=== PATIENT | male | born 1945 | race Caucasian/White ===

== ENCOUNTER → 2017-09-20 | Outpatient (CLI) | payer MEDICARE ==
[~2017-09-20] MED LIST: METF500 PO
[2017-09-20 12:27] LABS: Protein, Urine Quantitative 16.8 mg/dL (0.0-11.9)
[2017-09-20 12:30] LABS: Microalbumin, Urine Quant. 27.1 mg/L (0.000-20.000)
== END | disposition home or self-care (01) ==
LOC: LAB 10:04
PROVIDERS: Internal Medicine Nephrology
DX: E10.65 Type 1 diabetes mellitus with hyperglycemia (principal)
CPT/HCPCS: 82043; 84156

== ENCOUNTER 2019-08-09 13:38 | Inpatient (IN) | payer MEDICARE ==
[~2019-08-09] VITALS: Ht 170.2 cm; Wt 100.1 kg
[2019-08-09 13:59] LABS: BASOPHILS ABSOLUTE AUTO 0.09 K/mm3 (0.00-0.23); BASOPHILS PERCENT AUTO 1 % (0-2); EOSINOPHILS ABSOLUTE AUTO 0.29 K/mm3 (0.00-0.68); EOSINOPHILS PERCENT AUTO 3 % (0-6); Hematocrit 25.3 % (37.0-53.0); Hemoglobin 8.1 g/dL (13.5-17.5); IMMATURE GRAN ABSOLUTE AUTO 0.07 K/mm3 (0.00-0.10); IMMATURE GRAN PERCENT AUTO 1 % (0-1); LYMPHOCYTES ABSOLUTE AUTO 1.19 K/mm3 (0.84-5.20); LYMPHOCYTES PERCENT AUTO 11 % (21-46); MONOCYTES ABSOLUTE AUTO 0.79 K/mm3 (0.16-1.47); MONOCYTES PERCENT AUTO 7 % (4-13); Mean Corpuscular HGB 29.9 pg (26.0-34.0); Mean Corpuscular Volume 93 fL (80-100); Mean Platelet Volume 10.3 fL (9.1-12.4); NEUTROPHILS ABSOLUTE AUTO 8.93 K/mm3 (1.96-9.15); NEUTROPHILS PERCENT AUTO 79 % (41-73); Platelet Count 448 K/mm3 (150-400); RDW Coefficient Variation 13.1 % (11.7-14.2); RDW Standard Deviation 43.9 fL (35.1-46.3); Red Blood Cell Count 2.71 M/mm3 (4.30-5.90); White Blood Cell Count 11.36 K/mm3 (4.00-11.30)
[2019-08-09] MEDS ORDERED: ATORVASTATIN CA20 MG PO (14:11)
[2019-08-09] MEDS ORDERED: LIRA0.6P SC (14:12)
[2019-08-09] MEDS ORDERED: TAMSULOSIN HCL0.4 M1 PO (14:12)
[2019-08-09] MEDS ORDERED: ASPI325EC PO (14:12)
[2019-08-09] MEDS ORDERED: METOPROLOL SUCC25 MG PO (14:12)
[2019-08-09 14:36] LABS: Albumin, Blood 3.6 g/dL (3.4-5.0); Albumin/Globulin Ratio 0.9 (0.8-1.8); Bilirubin, Total 0.2 mg/dL (0.1-1.0); Bun/Creatinine Ratio 22.6 (12.0-20.0); Calcium, Blood 8.5 mg/dL (8.5-10.1); Creatinine, Blood 4.55 mg/dL (0.60-1.20); Globulin, Blood 4.1 g/dL (2.2-4.0); Total Protein, Blood 7.7 g/dL (6.4-8.2)
[2019-08-09 14:41] LABS: Troponin I 1.15 ng/mL (0.000-0.040)
[2019-08-09 15:19] LABS: International Normalized Ratio 0.99; Prothrombin Time Results 10.6 Sec (9.7-11.5)
[2019-08-09 15:33] LABS: Source, Urine Clean Catch
[2019-08-09 15:38] LABS: Bilirubin, Urine Neg (Neg); Blood, Urine Neg (Neg); Glucose Qualitative, Urine Neg (Neg); Ketones, Urine Neg (Neg); Leukocyte Esterase, Urine 1+ (Neg); Nitrite, Urine Neg (Neg); Protein, Urine Neg (Neg); Urobilinogen, Urine NORM (Normal)
[2019-08-09 15:49] LABS: Appearance, Urine Clear (Clear); Color, Urine Pale Yellow (P-Yellow)
[2019-08-09 15:50] LABS: Bacteria Few /hpf; Squamous Epithelial Cells Not Seen /hpf (Few)
[2019-08-10 04:14] LABS: BASOPHILS ABSOLUTE AUTO 0.06 K/mm3 (0.00-0.23); BASOPHILS PERCENT AUTO 0 % (0-2); EOSINOPHILS ABSOLUTE AUTO 0.02 K/mm3 (0.00-0.68); EOSINOPHILS PERCENT AUTO 0 % (0-6); Hemoglobin 8.8 g/dL (13.5-17.5); IMMATURE GRAN PERCENT AUTO 1 % (0-1); LYMPHOCYTES ABSOLUTE AUTO 0.74 K/mm3 (0.84-5.20); LYMPHOCYTES PERCENT AUTO 5 % (21-46); MONOCYTES ABSOLUTE AUTO 1.04 K/mm3 (0.16-1.47); MONOCYTES PERCENT AUTO 6 % (4-13); Mean Corpuscular HGB 29.9 pg (26.0-34.0); Mean Corpuscular HGB Conc 32.6 g/dL (31.5-36.5); Mean Corpuscular Volume 92 fL (80-100); Mean Platelet Volume 10.7 fL (9.1-12.4); NEUTROPHILS ABSOLUTE AUTO 14.36 K/mm3 (1.96-9.15); NEUTROPHILS PERCENT AUTO 88 % (41-73); Platelet Count 357 K/mm3 (150-400); RDW Standard Deviation 42.5 fL (35.1-46.3); Red Blood Cell Count 2.94 M/mm3 (4.30-5.90); White Blood Cell Count 16.32 K/mm3 (4.00-11.30)
[2019-08-10 04:39] LABS: Anion Gap 9 mmol/L (6-16); Blood Urea Nitrogen 95 mg/dL (8-24); Bun/Creatinine Ratio 22.7 (12.0-20.0); CHOL/HDL RATIO 2.9; CO2, Blood 19 mmol/L (21-32); Calcium, Blood 8.2 mg/dL (8.5-10.1); Chloride, Blood 115 mmol/L (98-108); Cholesterol 100 mg/dL (50-200); Creatinine, Blood 4.19 mg/dL (0.60-1.20); Glomerular Filtration Rate 15 (60-); Glucose, Blood 156 mg/dL (70-99); HDL Cholesterol 35 mg/dL (>39); Low Density Lipoprotein Chol 36 mg/dL (0-110); Magnesium, Blood 2.2 mg/dL (1.6-2.4); Phosphorus, Blood 7.3 mg/dL (2.5-4.9); Potassium, Blood 4.6 mmol/L (3.5-5.5); Sodium, Blood 143 mmol/L (136-145); Triglycerides 144 mg/dL (30-160); Very Low Density Lipoprot Chol 28 mg/dL (6-32)
[2019-08-10 14:19] LABS: Hematocrit 26.4 % (37.0-53.0); Hemoglobin 8.8 g/dL (13.5-17.5)
[2019-08-10 16:39] LABS: Source, Urine Catheter
[2019-08-10 17:03] LABS: Bilirubin, Urine Neg (Neg); Blood, Urine 5+ (Neg); Glucose Qualitative, Urine Neg (Neg); Ketones, Urine Neg (Neg); Leukocyte Esterase, Urine 3+ (Neg); Nitrite, Urine Neg (Neg); Protein, Urine 4+ (Neg); Urobilinogen, Urine NORM (Normal); pH, Urine 6.5 (5.0-8.0)
[2019-08-10 17:08] LABS: Appearance, Urine Bloody (Clear); Color, Urine Red (P-Yellow)
[2019-08-10 17:10] LABS: Bacteria Rare /hpf; Red Blood Cells, Urine TNTC /hpf (0-2); Squamous Epithelial Cells Not Seen /hpf (Few); White Blood Cells, Urine TNTC /hpf (0-5)
[2019-08-10 20:42] LABS: Hematocrit 25.4 % (37.0-53.0); Hemoglobin 8.5 g/dL (13.5-17.5)
[2019-08-11 04:16] LABS: BASOPHILS ABSOLUTE AUTO 0.06 K/mm3 (0.00-0.23); BASOPHILS PERCENT AUTO 1 % (0-2); EOSINOPHILS ABSOLUTE AUTO 0.45 K/mm3 (0.00-0.68); EOSINOPHILS PERCENT AUTO 4 % (0-6); Hematocrit 25.1 % (37.0-53.0); Hemoglobin 8.5 g/dL (13.5-17.5); IMMATURE GRAN ABSOLUTE AUTO 0.07 K/mm3 (0.00-0.10); IMMATURE GRAN PERCENT AUTO 1 % (0-1); LYMPHOCYTES ABSOLUTE AUTO 1.38 K/mm3 (0.84-5.20); LYMPHOCYTES PERCENT AUTO 11 % (21-46); MONOCYTES ABSOLUTE AUTO 1.34 K/mm3 (0.16-1.47); MONOCYTES PERCENT AUTO 10 % (4-13); Mean Corpuscular HGB 30.7 pg (26.0-34.0); Mean Corpuscular HGB Conc 33.9 g/dL (31.5-36.5); Mean Corpuscular Volume 91 fL (80-100); Mean Platelet Volume 10.1 fL (9.1-12.4); NEUTROPHILS ABSOLUTE AUTO 9.71 K/mm3 (1.96-9.15); NEUTROPHILS PERCENT AUTO 75 % (41-73); Platelet Count 306 K/mm3 (150-400); RDW Coefficient Variation 13.7 % (11.7-14.2); RDW Standard Deviation 44.9 fL (35.1-46.3); Red Blood Cell Count 2.77 M/mm3 (4.30-5.90); White Blood Cell Count 13.01 K/mm3 (4.00-11.30)
[2019-08-11 04:35] LABS: Albumin, Blood 2.7 g/dL (3.4-5.0); Anion Gap 9 mmol/L (6-16); Blood Urea Nitrogen 84 mg/dL (8-24); Bun/Creatinine Ratio 21.9 (12.0-20.0); CO2, Blood 21 mmol/L (21-32); Calcium, Blood 7.9 mg/dL (8.5-10.1); Chloride, Blood 111 mmol/L (98-108); Creatinine, Blood 3.83 mg/dL (0.60-1.20); Glomerular Filtration Rate 16 (60-); Glucose, Blood 154 mg/dL (70-99); Magnesium, Blood 1.8 mg/dL (1.6-2.4); Phosphorus, Blood 4.4 mg/dL (2.5-4.9); Sodium, Blood 141 mmol/L (136-145)
[2019-08-11 16:28] LABS: Hematocrit 26.8 % (37.0-53.0)
[2019-08-12 03:27] LABS: BASOPHILS ABSOLUTE AUTO 0.04 K/mm3 (0.00-0.23); BASOPHILS PERCENT AUTO 0 % (0-2); EOSINOPHILS ABSOLUTE AUTO 0.36 K/mm3 (0.00-0.68); EOSINOPHILS PERCENT AUTO 2 % (0-6); Hematocrit 27.1 % (37.0-53.0); IMMATURE GRAN ABSOLUTE AUTO 0.09 K/mm3 (0.00-0.10); IMMATURE GRAN PERCENT AUTO 1 % (0-1); LYMPHOCYTES ABSOLUTE AUTO 1.22 K/mm3 (0.84-5.20); LYMPHOCYTES PERCENT AUTO 8 % (21-46); MONOCYTES ABSOLUTE AUTO 1.46 K/mm3 (0.16-1.47); MONOCYTES PERCENT AUTO 10 % (4-13); Mean Corpuscular HGB 30.3 pg (26.0-34.0); Mean Corpuscular HGB Conc 33.2 g/dL (31.5-36.5); Mean Corpuscular Volume 91 fL (80-100); Mean Platelet Volume 10.1 fL (9.1-12.4); NEUTROPHILS ABSOLUTE AUTO 11.65 K/mm3 (1.96-9.15); NEUTROPHILS PERCENT AUTO 79 % (41-73); Platelet Count 299 K/mm3 (150-400); RDW Coefficient Variation 14.2 % (11.7-14.2); RDW Standard Deviation 46.4 fL (35.1-46.3); Red Blood Cell Count 2.97 M/mm3 (4.30-5.90); White Blood Cell Count 14.82 K/mm3 (4.00-11.30)
[2019-08-12 03:41] LABS: Albumin, Blood 2.6 g/dL (3.4-5.0); Anion Gap 7 mmol/L (6-16); Blood Urea Nitrogen 69 mg/dL (8-24); Bun/Creatinine Ratio 19.3 (12.0-20.0); CO2, Blood 22 mmol/L (21-32); Calcium, Blood 7.6 mg/dL (8.5-10.1); Chloride, Blood 113 mmol/L (98-108); Creatinine, Blood 3.57 mg/dL (0.60-1.20); Glomerular Filtration Rate 18 (60-); Glucose, Blood 147 mg/dL (70-99); Magnesium, Blood 1.7 mg/dL (1.6-2.4); Potassium, Blood 3.7 mmol/L (3.5-5.5); Sodium, Blood 142 mmol/L (136-145)
[2019-08-12 16:10] LABS: Hematocrit 27.5 % (37.0-53.0)
[2019-08-13 03:36] LABS: BASOPHILS ABSOLUTE AUTO 0.06 K/mm3 (0.00-0.23); BASOPHILS PERCENT AUTO 0 % (0-2); EOSINOPHILS ABSOLUTE AUTO 0.58 K/mm3 (0.00-0.68); EOSINOPHILS PERCENT AUTO 4 % (0-6); Hematocrit 25.4 % (37.0-53.0); Hemoglobin 8.6 g/dL (13.5-17.5); IMMATURE GRAN ABSOLUTE AUTO 0.12 K/mm3 (0.00-0.10); IMMATURE GRAN PERCENT AUTO 1 % (0-1); LYMPHOCYTES ABSOLUTE AUTO 1.52 K/mm3 (0.84-5.20); LYMPHOCYTES PERCENT AUTO 11 % (21-46); MONOCYTES ABSOLUTE AUTO 1.34 K/mm3 (0.16-1.47); MONOCYTES PERCENT AUTO 9 % (4-13); Mean Corpuscular HGB 31.2 pg (26.0-34.0); Mean Corpuscular HGB Conc 33.9 g/dL (31.5-36.5); Mean Corpuscular Volume 92 fL (80-100); Mean Platelet Volume 10.2 fL (9.1-12.4); NEUTROPHILS ABSOLUTE AUTO 10.62 K/mm3 (1.96-9.15); NEUTROPHILS PERCENT AUTO 75 % (41-73); Platelet Count 315 K/mm3 (150-400); RDW Coefficient Variation 14.1 % (11.7-14.2); RDW Standard Deviation 46.5 fL (35.1-46.3); Red Blood Cell Count 2.76 M/mm3 (4.30-5.90); White Blood Cell Count 14.24 K/mm3 (4.00-11.30)
[2019-08-13 03:51] LABS: Magnesium, Blood 1.6 mg/dL (1.6-2.4)
[2019-08-13 03:52] LABS: Albumin, Blood 2.4 g/dL (3.4-5.0); Anion Gap 7 mmol/L (6-16); Blood Urea Nitrogen 58 mg/dL (8-24); Bun/Creatinine Ratio 17.2 (12.0-20.0); CO2, Blood 23 mmol/L (21-32); Calcium, Blood 7.7 mg/dL (8.5-10.1); Chloride, Blood 111 mmol/L (98-108); Creatinine, Blood 3.38 mg/dL (0.60-1.20); Glomerular Filtration Rate 19 (60-); Glucose, Blood 154 mg/dL (70-99); Phosphorus, Blood 3.8 mg/dL (2.5-4.9); Potassium, Blood 3.8 mmol/L (3.5-5.5); Sodium, Blood 141 mmol/L (136-145)
[2019-08-14 05:04] LABS: Hematocrit 23.9 % (37.0-53.0); Hemoglobin 7.7 g/dL (13.5-17.5)
[2019-08-14 05:26] LABS: Albumin, Blood 2.5 g/dL (3.4-5.0); Anion Gap 8 mmol/L (6-16); Blood Urea Nitrogen 57 mg/dL (8-24); Bun/Creatinine Ratio 16.5 (12.0-20.0); CO2, Blood 24 mmol/L (21-32); Calcium, Blood 7.6 mg/dL (8.5-10.1); Chloride, Blood 109 mmol/L (98-108); Creatinine, Blood 3.46 mg/dL (0.60-1.20); Glomerular Filtration Rate 19 (60-); Glucose, Blood 150 mg/dL (70-99); Magnesium, Blood 1.4 mg/dL (1.6-2.4); Phosphorus, Blood 3.5 mg/dL (2.5-4.9); Potassium, Blood 3.7 mmol/L (3.5-5.5); Sodium, Blood 141 mmol/L (136-145)
[2019-08-15 04:35] LABS: Hemoglobin 8.9 g/dL (13.5-17.5)
[2019-08-15 04:55] LABS: Albumin, Blood 2.6 g/dL (3.4-5.0); Anion Gap 7 mmol/L (6-16); Blood Urea Nitrogen 54 mg/dL (8-24); Bun/Creatinine Ratio 17.5 (12.0-20.0); CO2, Blood 27 mmol/L (21-32); Calcium, Blood 7.9 mg/dL (8.5-10.1); Chloride, Blood 105 mmol/L (98-108); Creatinine, Blood 3.09 mg/dL (0.60-1.20); Glomerular Filtration Rate 21 (60-); Glucose, Blood 153 mg/dL (70-99); Magnesium, Blood 1.7 mg/dL (1.6-2.4); Phosphorus, Blood 3.7 mg/dL (2.5-4.9); Potassium, Blood 3.5 mmol/L (3.5-5.5); Sodium, Blood 139 mmol/L (136-145)
[2019-08-16 04:16] LABS: Hematocrit 28.4 % (37.0-53.0); Hemoglobin 9.2 g/dL (13.5-17.5)
[2019-08-16 04:31] LABS: Albumin, Blood 2.6 g/dL (3.4-5.0); Anion Gap 8 mmol/L (6-16); Blood Urea Nitrogen 53 mg/dL (8-24); Bun/Creatinine Ratio 17.4 (12.0-20.0); CO2, Blood 27 mmol/L (21-32); Calcium, Blood 7.9 mg/dL (8.5-10.1); Chloride, Blood 105 mmol/L (98-108); Creatinine, Blood 3.05 mg/dL (0.60-1.20); Glomerular Filtration Rate 21 (60-); Glucose, Blood 154 mg/dL (70-99); Magnesium, Blood 1.6 mg/dL (1.6-2.4); Phosphorus, Blood 3.7 mg/dL (2.5-4.9); Potassium, Blood 3.5 mmol/L (3.5-5.5); Sodium, Blood 140 mmol/L (136-145)
[2019-08-16] MEDS ORDERED: ATOR40TA PO (14:38)
[2019-08-16] MEDS ORDERED: ISOSORBIDE MONO60 MG PO (14:41)
== END 2019-08-16 16:16 | disposition home or self-care (01) | DRG 380 ==
LOC: ER 13:38 → PCU 13:39 → ICUW 18:39 → PCU 18:52 → ICUW 19:28 → MEDS 08-14 02:35
PROVIDERS: Emergency Medicine; Internal Medicine Gastroenterology; Internal Medicine Nephrology; Internal Medicine Pulmonary Disease; Physician Assistant; ADMIT Internal Medicine
PROC: 30233N1 Transfusion of Nonautologous Red Blood Cells into Peripheral Vein, Percutaneous Approach (ICD-10-PCS; 2019-08-09)
PROC: 0DB68ZZ Excision of Stomach, Via Natural or Artificial Opening Endoscopic (ICD-10-PCS; principal; 2019-08-10 12:00)
PROC: 0DD68ZX Extraction of Stomach, Via Natural or Artificial Opening Endoscopic, Diagnostic (ICD-10-PCS; 2019-08-10 12:00)
DX: K22.11 Ulcer of esophagus with bleeding (principal); I21.A1 Myocardial infarction type 2; N18.4 Chronic kidney disease, stage 4 (severe); D62 Acute posthemorrhagic anemia; N39.0 Urinary tract infection, site not specified; I25.2 Old myocardial infarction; E00.9 Congenital iodine-deficiency syndrome, unspecified; Z95.5 Presence of coronary angioplasty implant and graft; I12.9 Hypertensive chronic kidney disease with stage 1 through stage 4 chronic kidney disease, or unspecified chronic kidney disease; E78.5 Hyperlipidemia, unspecified; I25.10 Atherosclerotic heart disease of native coronary artery without angina pectoris; Z79.84 Long term (current) use of oral hypoglycemic drugs; Z79.82 Long term (current) use of aspirin; Z87.891 Personal history of nicotine dependence; E66.3 Overweight; Z68.31 Body mass index [BMI] 31.0-31.9, adult; E83.39 Other disorders of phosphorus metabolism; E88.09 Other disorders of plasma-protein metabolism, not elsewhere classified; E11.22 Type 2 diabetes mellitus with diabetic chronic kidney disease; I35.0 Nonrheumatic aortic (valve) stenosis; E86.1 Hypovolemia; N13.9 Obstructive and reflux uropathy, unspecified; T39.015A Adverse effect of aspirin, initial encounter; Y92.9 Unspecified place or not applicable; N40.1 Benign prostatic hyperplasia with lower urinary tract symptoms; T83.83XD Hemorrhage due to genitourinary prosthetic devices, implants and grafts, subsequent encounter
CPT/HCPCS: 36415; 36430; 51700; 51702; 51798; 71046; 74176; 76770; 80053; 80061; 80069; 81001; 82272; 82947; 83735; 83880; 84484; 85014; 85018; 85025; 85610; 85730; 86850; 86900; 86901; 86923; 87086; 88305; 88342; 93005; 93010; 93306; 96365; 96375; 97116; 97162; 97165; 97530; 99285-25; A9270-GY; C9113; G0103; J0171; J0696; J0881; J1940; J2270; J2370; J2405; J2704; J3475; J7030; J7040; J7120; P9016

== ENCOUNTER 2019-09-23 08:50 | Inpatient (IN) | payer MEDICARE ==
[~2019-09-23] VITALS: Ht 170.2 cm; Wt 88.4 kg
[~2019-09-23 08:50] MED LIST changes: +ASPI325EC PO; +ATOR40TA PO; +ATORVASTATIN CA20 MG PO; +ISOSORBIDE MONO60 MG PO; +LIRA0.6P SC; +TAMSULOSIN HCL0.4 M1 PO
[2019-09-23 09:34] LABS: BASOPHILS ABSOLUTE AUTO 0.15 K/mm3 (0.00-0.23); BASOPHILS PERCENT AUTO 1 % (0-2); EOSINOPHILS ABSOLUTE AUTO 0.28 K/mm3 (0.00-0.68); EOSINOPHILS PERCENT AUTO 2 % (0-6); Hematocrit 37.2 % (37.0-53.0); Hemoglobin 11.7 g/dL (13.5-17.5); IMMATURE GRAN ABSOLUTE AUTO 0.21 K/mm3 (0.00-0.10); IMMATURE GRAN PERCENT AUTO 1 % (0-1); LYMPHOCYTES ABSOLUTE AUTO 0.83 K/mm3 (0.84-5.20); LYMPHOCYTES PERCENT AUTO 5 % (21-46); MONOCYTES ABSOLUTE AUTO 1.31 K/mm3 (0.16-1.47); MONOCYTES PERCENT AUTO 9 % (4-13); Mean Corpuscular HGB 26.1 pg (26.0-34.0); Mean Corpuscular HGB Conc 31.5 g/dL (31.5-36.5); Mean Platelet Volume 9.7 fL (9.1-12.4); NEUTROPHILS ABSOLUTE AUTO 12.68 K/mm3 (1.96-9.15); NEUTROPHILS PERCENT AUTO 82 % (41-73); Platelet Count 778 K/mm3 (150-400); RDW Coefficient Variation 15.2 % (11.7-14.2); RDW Standard Deviation 45.9 fL (35.1-46.3); Red Blood Cell Count 4.48 M/mm3 (4.30-5.90); White Blood Cell Count 15.46 K/mm3 (4.00-11.30)
[2019-09-23 09:36] LABS: Mean Corpuscular Volume 83 fL (80-100)
[2019-09-23 09:41] LABS: Troponin I <0.015 ng/mL (0.000-0.040)
[2019-09-23 09:53] LABS: Alanine Aminotransfer (ALT/SGP 42 U/L (12-78); Albumin, Blood 2.2 g/dL (3.4-5.0); Albumin/Globulin Ratio 0.3 (0.8-1.8); Alk Phos 121 U/L (50-136); Anion Gap 12 mmol/L (6-16); Aspartate Aminotrans (AST/SGOT 21 U/L (12-37); Bilirubin, Total 0.4 mg/dL (0.1-1.0); Blood Urea Nitrogen 97 mg/dL (8-24); Bun/Creatinine Ratio 25.1 (12.0-20.0); CO2, Blood 16 mmol/L (21-32); Calcium, Blood 9.3 mg/dL (8.5-10.1); Chloride, Blood 102 mmol/L (98-108); Creatinine, Blood 3.86 mg/dL (0.60-1.20); Globulin, Blood 6.4 g/dL (2.2-4.0); Glomerular Filtration Rate 16 (60-); Glucose, Blood 288 mg/dL (70-99); Sodium, Blood 130 mmol/L (136-145); Total Protein, Blood 8.6 g/dL (6.4-8.2)
[2019-09-23 10:26] LABS: Source, Urine Clean Catch
[2019-09-23 10:31] LABS: Bilirubin, Urine Neg (Neg); Blood, Urine 4+ (Neg); Glucose Qualitative, Urine 1+ (Neg); Ketones, Urine Neg (Neg); Leukocyte Esterase, Urine 3+ (Neg); Nitrite, Urine Neg (Neg); Protein, Urine 3+ (Neg); Urobilinogen, Urine NORM (Normal)
[2019-09-23 10:52] LABS: Appearance, Urine Cloudy (Clear); Bacteria Many /hpf; Color, Urine Yellow (P-Yellow); Red Blood Cells, Urine TNTC /hpf (0-2); Squamous Epithelial Cells Not Seen /hpf (Few); White Blood Cells, Urine TNTC /hpf (0-5)
[2019-09-23] MEDS ORDERED: PANTOPRAZOLE SO40 M2 PO (12:23)
--- NOTE | 2019-09-23 14:50 | NUR ---
ER ADMIT- PT ARRIVED TO ROOM 301 VIA GURNEY FROM ED AT 1215, PT A SBA INTO BATHROOM, PT WITH UNSTEADY GAIT. LS CLEAR, ON RA, PT REPORTS OCCASIONAL PRODUCTIVE COUGH. TELE SR AT 95. WAS ABLE TO GET A POST VOID BLADDER SCAN OF 867,PT REFUSED A CATHETER REPORTS HE WAS DISCHARGED HOME WITH ONE FOR 15 DAYS AND WOULD NEVER DO IT AGAIN. PT REPORTS HE IS SEES A UROLOGIST THAT COMES DOWN FROM [place] THAT HAS MENTIONED TO PT BEFORE ABOUT A STRAIGHT CATH BUT PT HAS NOT EVER STRAIGHT CATH'D HIMSELF. SPOKE WITH DR CALLOWAY WHO GAVE ORDERS FOR BLADDER SCAN EVERY 4-6 HOURS AND STRAIGHT CATH FOR GREATER THAT 300ML. DR TY CONSULTED. PT REPORTS HE IS UNSURE WHAT HE TAKES AT HOME, STATES HE WAS DISCHARGED FROM [place] IN [place] AND WAS GIVEN A 30 DAY FILL BUT NO REFILS SO STOPPED TAKING HIS MEDS AFTER HE RAN OUT AND HAS NOT SEEN HIS PRIMARY TO FILL. [facility] CALLED AND REPORTED PT HAD A OUTPATIENT STRESS TEST ORDERED FOR TODAY AND TOMORROW, CALLED AND SPOKE WITH DR CALLOWAY WHO REPORTS PT IS TO UNSTABLE AT THIS TIME TO COMPLETE WHILE HERE AND IT WILL NEED TO BE RESCHEDULED, [facility] NOTIFIED. ORTHOSTATICS COMPLETED WHEN PT ARRIVED, LYING 150/89 HR 95, SITTING 137/94 HR 101 AND STANDING 118/82 HR 107, PT DID REPORT FEELING LIGHTHEADED. DR CALLOWAY NOTIFIED OF POSITIVE ORTHOSTATICS, NO NEW ORDERS RECEIVED. PT ORIENTED TO ROOM ADN CALL SYSTEM, CALL LIGHT IN REACH.
[2019-09-23] MEDS ORDERED: METOPROLOL SUCC25 MG PO (14:51)
--- NOTE | 2019-09-23 17:31 | NUR ---
ER ADMIT- PT A/O BUT FORGETFUL AT TIMES. 1 ASSIST TO BATHROOM, UNSTEADY GAIT. PT DENIES ANY COMPLAINTS. LS CLEAR, ON RA. TELE SR AT 95. STRAIGHT CATH X1 WITH [address] TY BLADDER SCAN EVERY 6 HOURS WHILE AWAKE, ORDERS FOR STRAIGHT CATH FOR GREATER THAN 300ML. DAUGHTER DUKE UPDATED. NO OTHER ACUTE CHANGES SINCE ADMIT.
--- NOTE | 2019-09-24 04:45 | NUR ---
SHIFT SUMMARY PT A/O. PLEASANT AND COOPERATIVE. SLEPT THROUGH MUCH OF THE NIGHT. BLADDER SCAN DONE X 1 THIS EVENING WITH READING >667 ML. STRAIGHT CATH'D FOR 650 ML OUT. URINE VERY CLOUDY, ALMOST MILKY APPEARING. A SMALL AMOUNT OF BLOOD OUT AT FIRST WITH CATHETER INSERTION. STRAIGHT CATH VERY PAINFUL FOR PATIENT. PT DECLINED TO HAVE BLADDER SCAN DONE THIS AM, STATING THAT HE WOULD PREFER TO DO IT DURING THE DAY TIME. ORDER READS BLADDER SCAN Q 6 HOURS WHILE AWAKE. PT WOKEN FOR LABS AND VITAL SIGNS THIS AM BUT DID NOT WANT TO DO IT AT THAT TIME, REQUESTING TO WAIT UNTIL LATER IN THE DAY WHEN HE WAS MORE AWAKE. PT DENIED ANY PAIN THIS EVENING. PT DRANK A SMALL AMOUNT OF WATER. TOOK IN NOTHING ELSE ORALLY TONIGHT. SODIUM BICARB INFUSING AT 100 ML/HR. TELEMETRY SINUS TACH 101. WILL CONTINUE TO MONITOR AND REPORT TO DAY RN.
[2019-09-24 05:09] LABS: Hematocrit 31.3 % (37.0-53.0); Hemoglobin 9.9 g/dL (13.5-17.5)
[2019-09-24 05:51] LABS: Albumin, Blood 1.8 g/dL (3.4-5.0); Anion Gap 12 mmol/L (6-16); Blood Urea Nitrogen 92 mg/dL (8-24); Bun/Creatinine Ratio 25.4 (12.0-20.0); CO2, Blood 21 mmol/L (21-32); Calcium, Blood 8.3 mg/dL (8.5-10.1); Chloride, Blood 102 mmol/L (98-108); Creatinine, Blood 3.62 mg/dL (0.60-1.20); Glomerular Filtration Rate 18 (60-); Glucose, Blood 213 mg/dL (70-99); Magnesium, Blood 1.7 mg/dL (1.6-2.4); Phosphorus, Blood 4.1 mg/dL (2.5-4.9); Potassium, Blood 4.1 mmol/L (3.5-5.5); Sodium, Blood 135 mmol/L (136-145)
--- NOTE | 2019-09-24 08:15 | NUR ---
PT PLEASANT COOP A/O. DENIES PAIN. H/R REG, NO MURMER NOTED. PER TELE S TACH AT 100. LUNGS CLEAR, RESP EASY, UNLABORED. ON R/A. BT X4 LAST BM 2 DAYS. PT STATES FEELS MAY GO TODAY. IS NOT VOIDING. WILL STRAIGHT CATH BASED UPON FLUID >300 ORDERS. NO OTHER CONCERNS AT THIS TIME. BED IN LOW POSITION, CALL LITE IN REACH, CALLS APPROP
--- NOTE | 2019-09-24 09:54 | NUR ---
PT /OT REPORTED PT BP DROPPED TO MID 90'S PUT BACK TO BED. PT FELT DIZZY. PT IS IN BED. NEW BP 107/[address] TY. ORDERS 500 BOLUS. CONTINUE OTHER MEDS. HOLD BP MEDS IF <130 SBP.
--- NOTE | 2019-09-24 11:06 | NUR ---
BLADDER SCAN 969, STRAIGHT CATH, 1150 OUT.
--- NOTE | 2019-09-24 16:32 | NUR ---
DR TY CALLED [facility] CATH
--- NOTE | 2019-09-24 17:25 | NUR ---
PT PLEASANT TODAY. PT SPOKE TO OUTSIDE UROLOGY, UROLOGY CALLED AND STATES DR TY ASKED THEM TO TRY GET PT TO AGREE TO RIVERA CATH., AND STOP STRAIGHT CATH. ASKED PT, HE AGREED. CALLED DR TY, ORDERS GIVEN. RIVERA CATH PLACED. NO BLOOD, PT TOLERATED ACCEPTABLE. STERILE TECHNIQUE MAINTAINED. CLOUDY FLUID DRAINING. PT DID HAVE B/M TODAY. NO NEW ISSUES TODAY. BED IN LOW POSITION, CALL LITE IN REACH, CALLS APPROP
--- NOTE | 2019-09-24 19:30 | NUR ---
ASSUMED CARE RECEIVED REPORT FROM [facility]. ASSUMED CARE OF PT. RESTING COMFORTABLY AT THIS TIME, NO C/O CATHETER DISCOMFORT AT THIS TIME. DENIES NEEDS. CALL LIGHT, POSSESSIONS IN REACH, WILL CONTINUE TO MONITOR.
[2019-09-25 04:33] LABS: BASOPHILS ABSOLUTE AUTO 0.07 K/mm3 (0.00-0.23); BASOPHILS PERCENT AUTO 1 % (0-2); EOSINOPHILS ABSOLUTE AUTO 0.33 K/mm3 (0.00-0.68); EOSINOPHILS PERCENT AUTO 3 % (0-6); Hematocrit 31.8 % (37.0-53.0); Hemoglobin 9.9 g/dL (13.5-17.5); IMMATURE GRAN ABSOLUTE AUTO 0.15 K/mm3 (0.00-0.10); IMMATURE GRAN PERCENT AUTO 1 % (0-1); LYMPHOCYTES ABSOLUTE AUTO 1.01 K/mm3 (0.84-5.20); LYMPHOCYTES PERCENT AUTO 8 % (21-46); MONOCYTES ABSOLUTE AUTO 1.25 K/mm3 (0.16-1.47); MONOCYTES PERCENT AUTO 10 % (4-13); Mean Corpuscular HGB 26.1 pg (26.0-34.0); Mean Corpuscular HGB Conc 31.1 g/dL (31.5-36.5); Mean Corpuscular Volume 84 fL (80-100); Mean Platelet Volume 9.3 fL (9.1-12.4); NEUTROPHILS ABSOLUTE AUTO 9.73 K/mm3 (1.96-9.15); NEUTROPHILS PERCENT AUTO 78 % (41-73); Platelet Count 602 K/mm3 (150-400); RDW Coefficient Variation 15.4 % (11.7-14.2); RDW Standard Deviation 46.6 fL (35.1-46.3); White Blood Cell Count 12.54 K/mm3 (4.00-11.30)
[2019-09-25 04:56] LABS: Albumin, Blood 1.6 g/dL (3.4-5.0); Anion Gap 11 mmol/L (6-16); Blood Urea Nitrogen 77 mg/dL (8-24); Bun/Creatinine Ratio 23.1 (12.0-20.0); CO2, Blood 22 mmol/L (21-32); Chloride, Blood 102 mmol/L (98-108); Creatinine, Blood 3.33 mg/dL (0.60-1.20); Glomerular Filtration Rate 19 (60-); Glucose, Blood 233 mg/dL (70-99); Magnesium, Blood 1.6 mg/dL (1.6-2.4); Phosphorus, Blood 3.2 mg/dL (2.5-4.9); Potassium, Blood 3.8 mmol/L (3.5-5.5); Sodium, Blood 135 mmol/L (136-145)
--- NOTE | 2019-09-25 05:02 | NUR ---
SHIFT SUMMARY PT ASLEEP AT THIS TIME, NO S/S ACUTE DISTRESS NOTED. WAS MONITORED EVERY 1-2 HOURS WITH NEEDS MET, DENIES NEEDS AT THIS TIME. TOLERATED CATHETER WELL T/O NIGHT, NO C/O DISCOMFORT, U/O CONTINUES TO BE MILKY WHITE COLORED, NO C/O PAIN. NO ACUTE EVENTS NOTED T/O SHIFT, VS STABLE. CALL LIGHT, POSSESSIONS IN REACH, WILL CONTINUE TO MONITOR UNTIL DAY RN ASSUMES CARE.
--- NOTE | 2019-09-25 06:18 | NUR ---
SPOKE TO DR. BUTLER REGARDING PT'S ONGOING COUGH. ORDERS RECEIVED.
[2019-09-25] MEDS ORDERED: CEFU500T30 PO (10:22)
[2019-09-25] MEDS ORDERED: CLOP75 PO (10:22)
[2019-09-25] MEDS ORDERED: NITR.4SL SL (10:23)
[2019-09-25] MEDS ORDERED: Isosorbide Mono30 MG PO (10:23)
[2019-09-25] MEDS ORDERED: METO25ER PO (10:23)
--- NOTE | 2019-09-25 14:21 | NUR ---
DISCHARGE SUMMARY PT A&Ox3; CALM AND COOPERATIVE WITH CARE. PT RESTING IN BED DURING SHIFT, UP SBA WITH WALKER. PT WALKED 300+ FEET THIS AM, DENIES DZZINESS AND WEAKNESS. PT DENIES PAIN, CHEST PAIN/PRESSURE, SOB AND NAUSEA T/O SHIFT. OTHROSTATIC VITALS TAKEN THEN AM, NOTIFIED DR CALLOWAY. VSS. HELD IMDUR AND TOPROL XL DUE TO VS PARAMETERS. PT HAS RIVERA IN PLACE; PT BEING DISCHARGE WITH RIVERA CATHETER; BAG CHANGES TO LEG BAG AND SECURED TO PT LEG; PT EDUCATED ON RIVERA CATHETER CARE, PT STATES HE HAS HAD A FOELY CATHETER PREVIOUS AND KNOWS HOW TO TAKE CARE OF IT. PT DAUGHTER DUKE CALLED REGARDING HOME HEALTH, PT REFUSING STATING THAT HIS FAMILY WILL HELP TAKE CARE OF HIM; NOTIFIED PROVIDER REGARDING FAMILY DESIRE TO HAVE HOME HEALTH AND PT REFUSAL. PT EDUCATED ON DISCHARGE INSTRUCTIONS, FOLLOW APPOINTMENTS, AND MEDCIATIONS. PRESCRIPTIONS SENT TO [facility]. CLARIFIED WITH DR CALLOWAY REGARDING PARAMETERES AT HOME; NEW ORDERS TO CONTINUE BP PARAMETERES AT HOME. PT LEFT ROOM VIA WHEELCHAIR AT 1310. PT STABLE UPON DISCHARGE.
== END 2019-09-25 13:15 | disposition home or self-care (01) | DRG 641 ==
LOC: ER 08:50 → MEDS 11:18 → ENPENDDIS 09-25 10:00 → MEDS 09-25 13:15
PROVIDERS: Emergency Medicine; Internal Medicine Nephrology; ADMIT Internal Medicine Gastroenterology
DX: E87.5 Hyperkalemia (principal); N17.9 Acute kidney failure, unspecified; E87.1 Hypo-osmolality and hyponatremia; N18.9 Chronic kidney disease, unspecified; D63.1 Anemia in chronic kidney disease; N13.9 Obstructive and reflux uropathy, unspecified; E87.2 Acidosis; Z95.5 Presence of coronary angioplasty implant and graft
CPT/HCPCS: 36415; 70450; 71045; 76770; 80053; 80069; 81001; 82533; 82947; 83735; 83880; 84443; 84484; 85014; 85018; 85025; 87077; 87086; 87186; 93005; 93010; 96360; 97110; 97162; 99285-25; A9270-GY; J0696; J0881; J7030; J7040

== ENCOUNTER 2020-01-29 17:15 | Inpatient (IN) | payer MEDICARE, OTHER ==
[~2020-01-29] VITALS: Ht 170.2 cm; Wt 88.6 kg
[~2020-01-29 17:15] MED LIST changes: +CEFU500T30 PO; +Isosorbide Mono30 MG PO; -LIRA0.6P SC; +METOPROLOL SUCC25 MG PO; +NITR.4SL SL; +PANTOPRAZOLE SO40 M2 PO
[2020-01-29 17:35] LABS: BASOPHILS ABSOLUTE AUTO 0.08 K/mm3 (0.00-0.23); BASOPHILS PERCENT AUTO 1 % (0-2); EOSINOPHILS ABSOLUTE AUTO 0.02 K/mm3 (0.00-0.68); EOSINOPHILS PERCENT AUTO 0 % (0-6); Hematocrit 24.8 % (37.0-53.0); Hemoglobin 7.1 g/dL (13.5-17.5); IMMATURE GRAN ABSOLUTE AUTO 0.05 K/mm3 (0.00-0.10); IMMATURE GRAN PERCENT AUTO 1 % (0-1); LYMPHOCYTES PERCENT AUTO 10 % (21-46); MONOCYTES ABSOLUTE AUTO 0.48 K/mm3 (0.16-1.47); MONOCYTES PERCENT AUTO 5 % (4-13); Mean Corpuscular HGB 22.3 pg (26.0-34.0); Mean Corpuscular HGB Conc 28.6 g/dL (31.5-36.5); Mean Corpuscular Volume 78 fL (80-100); Mean Platelet Volume 10.2 fL (9.1-12.4); NEUTROPHILS ABSOLUTE AUTO 8.82 K/mm3 (1.96-9.15); NEUTROPHILS PERCENT AUTO 84 % (41-73); Platelet Count 480 K/mm3 (150-400); RDW Coefficient Variation 17.1 % (11.7-14.2); RDW Standard Deviation 48.6 fL (35.1-46.3); Red Blood Cell Count 3.18 M/mm3 (4.30-5.90); White Blood Cell Count 10.45 K/mm3 (4.00-11.30)
[2020-01-29 17:51] LABS: Albumin, Blood 3.8 g/dL (3.4-5.0); Albumin/Globulin Ratio 0.8 (0.8-1.8); Bilirubin, Total 0.3 mg/dL (0.1-1.0); Calcium, Blood 9.1 mg/dL (8.5-10.1); Creatinine, Blood 4.6 mg/dL (0.60-1.20); Globulin, Blood 4.9 g/dL (2.2-4.0); Magnesium, Blood 1.8 mg/dL (1.6-2.4); Total Protein, Blood 8.7 g/dL (6.4-8.2)
[2020-01-29] MEDS ORDERED: CLOP75 PO (17:52)
[2020-01-29] MEDS ORDERED: VICTOZA 2-0.6 MG/0.1 SC (17:52)
[2020-01-29 17:53] LABS: International Normalized Ratio 1.02; Prothrombin Time Results 10.9 Sec (9.7-11.5)
[2020-01-29] MEDS ORDERED: METO25ER PO (17:53)
[2020-01-29] MEDS ORDERED: SODIUM BICARBO650 MG PO (17:53)
[2020-01-29 18:09] LABS: Troponin I 2.21 ng/mL (0.000-0.040)
[2020-01-29] MEDS ORDERED: BASAGLAR K100 UNIT/5 PO (18:20)
[2020-01-29 19:48] LABS: Percent Saturation 5.6 % (20.0-50.0)
[2020-01-29 19:54] LABS: CHOL/HDL RATIO 4.4; Cholesterol 194 mg/dL (50-200); HDL Cholesterol 44 mg/dL (>39); LDL/HDL RATIO 2.5; Low Density Lipoprotein Chol 111 mg/dL (0-110); Triglycerides 197 mg/dL (30-160); Very Low Density Lipoprot Chol 39 mg/dL (6-32)
--- NOTE | 2020-01-29 22:22 | NUR ---
ADMISSION NOTE PATIENT ADMITTED TO ICU 5 FOR NSTEMI AT 1938. 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 VITAL SIGNS STABLE UPON ARRIVAL. CONTINUED COMPLAINTS OF 9/10 CHEST PAIN RADIATING BETWEEN SHOULDER BLADES. NITRO PATCH IN PLACE. PATIENT SLIGHTLY DROWSY. MEDICATED PAIN PER EMAR. CLARIFIED ORDERS WITH HOSPITALIST AND CARDIOLOGY. WILL TRANSFUSE 1 UNIT PRBCS AND REASSESS CHEST PAIN AFTER TRANSFUSION. RECHECK h&h ORDERED AFTER TRANSFUSION. TORB FROM CARDIOLOGY TO START NITROGLYCERIN INFUSION FOR CHEST PAIN. DR NI IN TO SEE PATIENT. VORB TO TRANSFUSE 1 UNIT OF PRBCS IF HEMOGLOBIN IS BELOW 9. CURRENTLY TRANSFUSING ONE UNIT NOW.
[2020-01-30 00:44] LABS: Hematocrit 24.6 % (37.0-53.0); Hemoglobin 7.3 g/dL (13.5-17.5)
[2020-01-30 05:33] LABS: BASOPHILS ABSOLUTE AUTO 0.06 K/mm3 (0.00-0.23); BASOPHILS PERCENT AUTO 1 % (0-2); EOSINOPHILS PERCENT AUTO 0 % (0-6); Hematocrit 28.3 % (37.0-53.0); Hemoglobin 8.5 g/dL (13.5-17.5); IMMATURE GRAN ABSOLUTE AUTO 0.05 K/mm3 (0.00-0.10); IMMATURE GRAN PERCENT AUTO 0 % (0-1); LYMPHOCYTES ABSOLUTE AUTO 1.09 K/mm3 (0.84-5.20); LYMPHOCYTES PERCENT AUTO 9 % (21-46); MONOCYTES ABSOLUTE AUTO 1.11 K/mm3 (0.16-1.47); MONOCYTES PERCENT AUTO 9 % (4-13); Mean Corpuscular HGB 24.7 pg (26.0-34.0); Mean Corpuscular Volume 82 fL (80-100); NEUTROPHILS ABSOLUTE AUTO 10.52 K/mm3 (1.96-9.15); NEUTROPHILS PERCENT AUTO 82 % (41-73); Platelet Count 404 K/mm3 (150-400); RDW Coefficient Variation 16.8 % (11.7-14.2); RDW Standard Deviation 50.8 fL (35.1-46.3); Red Blood Cell Count 3.44 M/mm3 (4.30-5.90); White Blood Cell Count 12.83 K/mm3 (4.00-11.30)
[2020-01-30 06:22] LABS: Albumin, Blood 2.9 g/dL (3.4-5.0); Anion Gap 11 mmol/L (6-16); Blood Urea Nitrogen 81 mg/dL (8-24); Bun/Creatinine Ratio 17.8 (12.0-20.0); CO2, Blood 17 mmol/L (21-32); Calcium, Blood 8.3 mg/dL (8.5-10.1); Chloride, Blood 112 mmol/L (98-108); Creatinine, Blood 4.56 mg/dL (0.60-1.20); Glomerular Filtration Rate 13 (60-); Glucose, Blood 173 mg/dL (70-99); Magnesium, Blood 1.8 mg/dL (1.6-2.4); Phosphorus, Blood 7.5 mg/dL (2.5-4.9); Potassium, Blood 4.4 mmol/L (3.5-5.5); Sodium, Blood 140 mmol/L (136-145)
--- NOTE | 2020-01-30 07:35 | NUR ---
END OF SHIFT NOTE PATIENT RECEIVED THREE UNITS OF PRBCS THIS SHIFT. THE THIRD UNIT IS CURRENTLY INFUSING. CARDIOLOGY CALLED TO NOTIFY OF INTENTION TO TAKE PATIENT TO THERAPEUTIC [facility]. PATIENT HAS NITROGLYCERIN DRIP INFUSING AT 20 MCG/HR. FENTANYL GIVEN FOR CHEST PAIN. HE HAS 1/10 CHEST PAIN AFTER PAIN MEDICATION. PATIENT STRAIGHT CATHED ONCE FOR BLADDER SCAN GREATER THAN 800. PATIENT HAS BEEN NPO SINCE 2300. PIV X [address]
--- NOTE | 2020-01-30 11:01 | NUR ---
ASSUMED CARE OF PT AT 0700. REPORT FROM [facility]. 3RD UNIT OF PRBCS TRANSFUSING ON SHIFT CHANGE. PT TO [employer] MANAGER AT APPROX 0730, BACK TO ROOM AT APPROX 0930. TR BAND TO RIGHT RADIAL, NO BLEEDING, HEMATOMA NOTED. BILATERAL EXTREMITIES COOL. PT DENIES NUMBNESS OR TINGLING. DENIES CHEST PAIN, NITRO GTT INFUSING AT 20 MCG/MIN. NSR, RATE 90'S, BP STABLE. 5L O2 VIA NC. LUNGS CLEAR. PT MAEW. NO ACTIVE BLEEDING SINCE SHIFT CHANGE, NONE PER NOC RN. PT PALE, WARM, DRY. PT A&OX 3. FOLLOWING COMMANDS. ABD ROUND, SOFT, NON TENDER. BT X 4. PT PENDING TRANSFER TO [facility]. WILL CONTINUE TO MONITOR.
--- NOTE | 2020-01-30 11:03 | NUR ---
Echocardiogram using 0.45ml of Definity contrast performed.
--- NOTE | 2020-01-30 13:45 | NUR ---
PT TRANSFERRED TO [facility]IA [facility]. ALL BELONGINGS c PT. REPORT CALLED TO [facility]IN [facility]. NITRO GTT CONTINUES TO INFUSE AT 20 MCG/MIN ON DEPARTURE.
== END 2020-01-30 13:45 | disposition short-term general hospital (02) | DRG 281 ==
LOC: ER 17:15 → ICUE 19:32 → ICUW 19:32 → ICUE 19:33
PROVIDERS: Emergency Medicine; ADMIT Family Medicine
PROC: 30233N1 Transfusion of Nonautologous Red Blood Cells into Peripheral Vein, Percutaneous Approach (ICD-10-PCS; principal; 2020-01-29)
PROC: 4A023N7 Measurement of Cardiac Sampling and Pressure, Left Heart, Percutaneous Approach (ICD-10-PCS; 2020-01-30)
PROC: B2111ZZ Fluoroscopy of Multiple Coronary Arteries using Low Osmolar Contrast (ICD-10-PCS; 2020-01-30)
DX: I21.4 Non-ST elevation (NSTEMI) myocardial infarction (principal); N17.9 Acute kidney failure, unspecified; D62 Acute posthemorrhagic anemia; N18.4 Chronic kidney disease, stage 4 (severe); T82.855A Stenosis of coronary artery stent, initial encounter; E87.2 Acidosis; K92.1 Melena; I25.2 Old myocardial infarction; I25.10 Atherosclerotic heart disease of native coronary artery without angina pectoris; Z95.5 Presence of coronary angioplasty implant and graft; E11.22 Type 2 diabetes mellitus with diabetic chronic kidney disease; D47.3 Essential (hemorrhagic) thrombocythemia; E66.9 Obesity, unspecified; I77.9 Disorder of arteries and arterioles, unspecified; E78.5 Hyperlipidemia, unspecified; E21.3 Hyperparathyroidism, unspecified; Z68.30 Body mass index [BMI] 30.0-30.9, adult; I12.9 Hypertensive chronic kidney disease with stage 1 through stage 4 chronic kidney disease, or unspecified chronic kidney disease; Z87.891 Personal history of nicotine dependence; Z79.84 Long term (current) use of oral hypoglycemic drugs
CPT/HCPCS: 36415; 36430; 51701; 71045; 76770; 76937; 80053; 80061; 80069; 82607; 82728; 82746; 82947; 83540; 83550; 83735; 83880; 84484; 85014; 85018; 85025; 85610; 85730; 86850; 86900; 86901; 86923; 93005; 93010; 93458; 96361; 96374; 96375; 96376; 99152; 99153; 99285-25; A9270-GY; C1769; C1894; C8929; C9113; G0008; J0881; J1644; J2250; J2270; J2405; J3010; J7030; J7050; P9016; Q2038; Q9957; Q9967; U0003